=== PATIENT | female | born 1985 | race Two or more races ===

== ENCOUNTER 2020-06-20 14:00 | Emergency (ER) | payer OTHER ==
[~2020-06-20] VITALS: Ht 152.4 cm; Wt 86.2 kg
[2020-06-20 14:16] VITALS: BP 139/99
--- NOTE | 2020-06-20 15:19 | NUR ---
[employer] MEMBER AT BEDSIDE
[2020-06-20 16:03] LABS: BASOPHILS # (AUTO) 0.1 /CMM (0.0-0.2); BASOPHILS % (AUTO) 1.4 % (0.0-2.0); EOSINOPHILS % (AUTO) 0.6 % (0.0-6.0); HEMATOCRIT 42 % (33-45); HEMOGLOBIN 14.3 g/dL (11.5-14.8); LYMPHOCYTES # (AUTO) 2.7 /CMM (0.8-4.8); LYMPHOCYTES % (AUTO) 56.7 % (20.0-44.0); MEAN CORPUSCULAR HGB CONC 34 g/dl (31.0-36.0); MEAN CORPUSCULAR VOLUME 89 fL (82-100); MONOCYTES # (AUTO) 0.3 /CMM (0.1-1.30); MONOCYTES % (AUTO) 6.4 % (2.0-12.0); NEUTROPHILS # (AUTO) 1.7 /CMM (1.8-8.9); NEUTROPHILS % (AUTO) 34.9 % (43.0-81.0); PLATELET COUNT (AUTO) 148 /CMM (150-450); RED BLOOD CELL COUNT(AUTO) 4.77 MIL/uL (4.0-5.2); WHITE BLOOD COUNT (AUTO) 4.7 K/uL (4.3-11.0)
[2020-06-20 16:05] LABS: CALCIUM, SERUM 8.5 mg/dL (8.5-10.1); CREATININE 0.7 mg/dL (0.6-1.3); POTASSIUM 3.6 mmol/L (3.5-5.1)
[2020-06-20] MEDS ORDERED: APIXABAN 5 MG TABLET PO SCH (16:30)
[2020-06-20] MEDS ORDERED: APIXABAN 5 MG TABLET ONE (16:59)
--- NOTE | 2020-06-20 17:21 | NUR ---
Patient discharged in custody in stable condition. Written and verbal after care instructions given. Patient and [employer] Supervisor verbalizes understanding of instruction.
== END 2020-06-20 17:23 ==
LOC: ER 14:02
DX: I82.401 Acute embolism and thrombosis of unspecified deep veins of right lower extremity (principal); I73.9 Peripheral vascular disease, unspecified; I10 Essential (primary) hypertension; Z98.890 Other specified postprocedural states; Z88.2 Allergy status to sulfonamides; Z88.1 Allergy status to other antibiotic agents
CPT/HCPCS: 36415; 73630-TC; 80048-TC; 82962-TC; 84702-TC; 85025-TC; 85610-TC; 85730-TC; 93926-TC; 93971-TC